=== PATIENT | female | born 1990 | race African-American/Black ===

== ENCOUNTER 2021-07-27 23:23 | Emergency (ER) | payer MEDICARE ==
[~2021-07-27] VITALS: Ht 157.5 cm; Wt 78.9 kg
[2021-07-28] MEDS ORDERED: CIPROFLOXACIN 500 MG TAB PO ONE (00:45)
[2021-07-28] MEDS ORDERED: CIPRO500 MG PO (00:49)
[2021-07-28 00:53] VITALS: BP 121/83
[2021-07-28] MEDS ORDERED: CIPROFLOXACIN 500 MG TAB ONE (00:54)
== END 2021-07-28 01:00 | disposition home or self-care (01) ==
LOC: FSED 23:28
DX: R30.0 Dysuria (principal); N39.0 Urinary tract infection, site not specified
CPT/HCPCS: 81003; 81025; 99283

== ENCOUNTER 2021-12-31 22:27 | Emergency (ER) | payer SELFPAY ==
[~2021-12-31] VITALS: Ht 157.5 cm; Wt 81.2 kg
[~2021-12-31 22:27] MED LIST: CIPRO500 MG PO
[2021-12-31] MEDS ORDERED: ALBUTEROL/IPRATROPIUM 3 ML NEB NEB ONE (23:30)
[2021-12-31] MEDS ORDERED: IBUPROFEN 600 MG TAB PO STA (23:30)
[2021-12-31] MEDS ORDERED: PREDNISONE 20 MG TAB PO ONE (23:30)
[2021-12-31] MEDS ORDERED: PROVENTIL HFA6.7 GM INH (23:43)
[2021-12-31] MEDS ORDERED: PREDNISONE20 MG PO (23:44)
[2021-12-31] MEDS ORDERED: LORATADINE-D 11 EACH PO (23:45)
[2021-12-31] MEDS ORDERED: MUCINEX DM ER1 EACH PO (23:46)
[2021-12-31] MEDS ORDERED: PREDNISONE 20 MG TAB ONE (23:50)
[2021-12-31] MEDS ORDERED: IBUPROFEN 600 MG TAB ONE (23:51)
[2021-12-31] MEDS ORDERED: ALBUTEROL/IPRATROPIUM 3 ML NEB ONE (23:51)
== END 2022-01-01 00:02 | disposition home or self-care (01) ==
LOC: FSED 22:35
DX: R50.9 Fever, unspecified (principal); J10.1 Influenza due to other identified influenza virus with other respiratory manifestations; J98.01 Acute bronchospasm; R05.9 Cough, unspecified
CPT/HCPCS: 99283; J7512

== ENCOUNTER 2022-08-09 13:50 | Emergency (ER) | payer BC, MEDICARE ==
[~2022-08-09] VITALS: Ht 152.4 cm; Wt 84.8 kg
[~2022-08-09 13:50] MED LIST changes: +CEFUROXIME500 MG PO; +LORATADINE-D 11 EACH PO; +MUCINEX DM ER1 EACH PO; +ONDANSETRON ODT4 MG PO; +PREDNISONE20 MG PO; +PROVENTIL HFA6.7 GM INH
[2022-08-09] MEDS ORDERED: KETOROLAC TROMETHAMINE 30 MG/ML VIAL IV STA (15:00)
[2022-08-09] MEDS ORDERED: FAMOTIDINE 20 MG/2 ML VIAL IV STA (15:00)
[2022-08-09] MEDS ORDERED: SODIUM CHLORIDE 0.9% 1000ML 1,000 ML IV SCH (15:00)
[2022-08-09] MEDS ORDERED: KETOROLAC TROMETHAMINE 30 MG/ML VIAL ONE (15:15)
[2022-08-09] MEDS ORDERED: CEFTRIAXONE 2 GM in SODIUM CHLORIDE 0.9% 100 ML IV ONE (15:15)
[2022-08-09] MEDS ORDERED: FAMOTIDINE 20 MG/2 ML VIAL IV ONE (15:16)
[2022-08-09] MEDS ORDERED: SODIUM CHLORIDE 0.9% 1000ML 1,000 ML ONE (15:16)
[2022-08-09] MEDS ORDERED: CEFTRIAXONE 1 GM VIAL ONE ×2 (15:16→15:33)
[2022-08-09] MEDS ORDERED: SODIUM CHLORIDE 0.9% 100 ML ONE (15:33)
[2022-08-09 16:30] VITALS: O2SAT 100
[2022-08-09] MEDS ORDERED: CEFUROXIME500 MG PO (16:45)
[2022-08-09] MEDS ORDERED: PANTOPRAZOLE SO40 MG PO (16:46)
[2022-08-09] MEDS ORDERED: NAPROSYN500 MG PO (16:49)
== END 2022-08-09 17:02 | disposition home or self-care (01) ==
LOC: FSED 13:54
DX: R07.89 Other chest pain (principal); N39.0 Urinary tract infection, site not specified; K21.9 Gastro-esophageal reflux disease without esophagitis
CPT/HCPCS: 71046; 74176; 80053; 81003; 81025; 82553; 84484; 85025; 93005; 99284; J0696; J1885; J7030; J7050